=== PATIENT | male | born 1960 | race Caucasian/White ===

== ENCOUNTER 2016-12-04 02:22 | Emergency (ER) | payer MEDICAID ==
[~2016-12-04] VITALS: Ht 170.2 cm; Wt 82.0 kg
[2016-12-04 02:25] VITALS: Ht 170.2 cm; Wt 82.0 kg
[2016-12-04] MEDS ORDERED: AMOX1TAB10 PO (02:56)
--- NOTE | 2016-12-04 04:17 | ERA ---
ER Documentation Chief Complaint Date/Time DATE: 12/04/16 TIME: 04:12 Chief Complaint toothache, swollen gums, right jaw swelling HPI 56-year-old male presenting with a chief complaint of right jaw swelling and pain 3 days. Describes mild trismus. Patient has never had symptoms like this before. Patient denies IV drug use or other social factors. Denies fever , chills, nausea, vomiting, diarrhea, constipation, shortness of breath, chest pain, headache, meningismus. Patient has no other complaints and describes no other associated manifestations. Nursing notes have been reviewed. ROS All systems reviewed and are negative except as per history of present illness. Medications Home Meds Active Scripts Amoxicillin/Potassium Clav (Amox-Clav 875-125 mg Tablet) 875-125 mg Tab, 1 TAB PO BID for 7 Days, #14 TAB Prov:TIN DVAIS PA-C 12/04/16 Allergies Allergies: Coded Allergies: No Known Allergy (Unverified , 12/04/16) PMhx/Soc Medical and Surgical Hx: pt denies Medical Hx Hx Alcohol Use: No Hx Substance Use: No Hx Tobacco Use: Yes Smoking Status: Current every day smoker Physical Exam Vitals Vital Signs Date Time Temp Pulse Resp B/P Pulse Ox O2 Delivery O2 Flow Rate FiO2 12/04/16 02:25 97.8 88 20 156/78 98 Physical Exam Const: Homeless appearing 56-year-old male in no acute distress Head: Atraumatic Eyes: Normal Conjunctiva ENT: Mild trismus. No uvula deviation. Mild to moderate swelling of the right mandible. Mild tenderness to palpation. No temporal or mastoid tenderness. Normal External Ears, Nose. Oral mucosa appears pink and moist without obvious abnormalities. Neck: Full range of motion..~ No meningismus. Good air movement with auscultation. No bruits. Resp: Clear to auscultation bilaterally Cardio: Regular rate and rhythm, no murmurs Abd: Soft, non tender, non distended. Normal bowel sounds Skin: No petechiae or rashes Back: No midline or flank tenderness Ext: No cyanosis, or edema Neur: Awake and alert Psych: Normal Mood and Affect Result Diagram: 12/04/16 0451 12/04/16 0451 Results 24 hrs Laboratory Tests Test 12/04/16 04:51 White Blood Count 8.810^3/ul Red Blood Count 4.4710^6/ul Hemoglobin 13.7g/dl Hematocrit 40.9% Mean Corpuscular Volume 91.5fl Mean Corpuscular Hemoglobin 30.6pg Mean Corpuscular Hemoglobin Concent 33.5g/dl Red Cell Distribution Width 12.3% Platelet Count 92130^3/UL Mean Platelet Volume 9.5fl Neutrophils % 67.4% Lymphocytes % 20.6% Monocytes % 10.1% Eosinophils % 1.1% Basophils % 0.5% Nucleated Red Blood Cells % 0.0/100WBC Neutrophils # 5.910^3/ul Lymphocytes # 1.810^3/ul Monocytes # 0.910^3/ul Eosinophils # 0.110^3/ul Basophils # 0.010^3/ul Nucleated Red Blood Cells # 0.010^3/ul Urine Color YELLOW Urine Clarity CLEAR Urine pH 5.0 Urine Specific Sullivan 1.027 Urine Ketones NEGATIVEmg/dL Urine Nitrite NEGATIVEmg/dL Urine Bilirubin NEGATIVEmg/dL Urine Urobilinogen 1+mg/dL Urine Leukocyte Esterase NEGATIVELeu/ul Urine Microscopic RBC 25/HPF Urine Microscopic WBC 1/HPF Urine Mucus MANY/HPF Urine Hemoglobin 2+mg/dL Urine Glucose NEGATIVEmg/dL Urine Total Protein 1+mg/dl Sodium Level 141mmol/L Potassium Level 4.0mmol/L Chloride Level 97mmol/L Carbon Dioxide Level 32mmol/L Anion Gap 16 Blood Urea Nitrogen 20mg/dl Creatinine 0.91mg/dl Glucose Level 136mg/dl Calcium Level 8.9mg/dl Total Bilirubin 0.2mg/dl Direct Bilirubin 0.00mg/dl Indirect Bilirubin 0.2mg/dl Aspartate Amino Transf (AST/SGOT) 22IU/L Alanine Aminotransferase (ALT/SGPT) 35IU/L Alkaline Phosphatase 73IU/L Total Protein 7.2g/dl Albumin 3.8g/dl Globulin 3.40g/dl Albumin/Globulin Ratio 1.11 Current Medications Medications (Trade) Dose Ordered Sig/Libia Route PRN Reason Start Time Stop Time Status Last Admin Dose Admin Ampicillin Sodium/ Sulbactam Sodium (Unasyn 3gm/NS (Pmx)) 100 ml @ 100 mls/hr ONCE ONCE IVPB 12/04/16 06:00 12/04/16 06:59 Procedures/MDM 56-year-old male presenting with a chief complaint of right jaw swelling and pain 3 days as described in history and physical examination. Denies symptoms of systemic involvement. Refused pain medications in the ED. labs were obtained. CBC: Unremarkable CMP: Unremarkable Urinalysis: Hematuria. Mucus. PT/PTT: Unremarkable CT was ordered, read by the radiologist, and given the following impression: 1. Nasal bone deformity with bilateral fractures. 2. Periapical lucency right lower second molar tooth most suggestive of a periapical abscess with adjacent cortical thinning and questionable fracture along the lingual surface with surrounding submandibular soft tissue swelling consistent with soft tissue infection. 3. Diffuse increase right submandibular lymph nodes. 4. Mild mucosal thickening right frontal sinus, bilateral ethmoid air cells and inferior maxillary sinuses. 5. Rightward nasal septal deviation. Presented the case to my attending Dr. Miles who has suggested 3 g Unasyn IV before departure. Patient will be discharged with Augmentin 10 days. I have spoke with the patient regarding their condition and future management including the necessity for follow-up with Lenny brennan in the next 1-3 days and immediate return if symptoms change or worsen. They have verbally responded that they understand their status and treatment plan. The patients vitals are stable, and their current condition is appropriate for discharge. The patient will be given discharge instructions with return precautions. Departure Diagnosis: Primary Impression: Tooth abscess Condition: Stable Patient Instructions: Dental Abscess Referrals: [facility] ([facility] walk in clinic) Additional Instructions: Follow up with [facility] within the next 1-3 days. Return the the emergency department immediately if symptoms worsen or change. If you have any questions regarding medications, ask your pharmacist or us before you leave. If any adverse reactions occur while taking your medications, discontinue the treatment and return to the emergency department immediately. Take your medications as directed, and complete the entire course of treatment. TIN DAVIS PA-C Dec 04, 2016 04:17
[2016-12-04 05:06] LABS: BASOPHILS % 0.5 % (0.0-2.0); EOSINOPHILS # 0.1 10^3/ul (0.0-0.5); EOSINOPHILS % 1.1 % (0.0-7.0); HEMATOCRIT 40.9 % (42.0-52.0); HEMOGLOBIN 13.7 g/dl (14.0-18.0); LYMPHOCYTES # 1.8 10^3/ul (0.8-2.9); LYMPHOCYTES % 20.6 % (15.0-51.0); MEAN CORPUSCULAR HEMOGLOBIN 30.6 pg (29.0-33.0); MEAN CORPUSCULAR HGB CONC 33.5 g/dl (32.0-37.0); MEAN CORPUSCULAR VOLUME 91.5 fl (82.0-101.0); MEAN PLATELET VOLUME 9.5 fl (7.4-10.4); MONOCYTE # 0.9 10^3/ul (0.3-0.9); MONOCYTES % 10.1 % (0.0-11.0); NEUTROPHIL # 5.9 10^3/ul (1.6-7.5); NEUTROPHILS % 67.4 % (39.0-77.0); PLATELET COUNT 197 10^3/UL (140-415); RED BLOOD COUNT 4.47 10^6/ul (4.70-6.10); RED CELL DISTRIBUTION WIDTH 12.3 % (11.5-14.5); WHITE BLOOD COUNT 8.8 10^3/ul (4.8-10.8)
[2016-12-04 05:18] LABS: ADD UMIC YES; UR ASCORBIC ACID 40 mg/dL (NEGATIVE); UR BILIRUBIN (Dip) NEGATIVE (NEGATIVE); UR BLOOD (Dip) 2+ mg/dL (NEGATIVE); UR CLARITY CLEAR (CLEAR); UR COLOR YELLOW (YELLOW); UR GLUCOSE (Dip) NEGATIVE (NEGATIVE); UR KETONES (Dip) NEGATIVE (NEGATIVE); UR LEUKOCYTE ESTERASE (Dip) NEGATIVE Leu/ul (NEGATIVE); UR MUCUS MANY /HPF (NONE SEEN); UR NITRITE (Dip) NEGATIVE (NEGATIVE); UR RBC 25 /HPF (0-5); UR SPECIFIC GRAVITY (Dip) 1.027 (1.003-1.030); UR TOTAL PROTEIN (Dip) 1+ mg/dl (NEGATIVE); UR UROBILINOGEN (Dip) 1+ mg/dL (NEGATIVE)
--- NOTE | 2016-12-04 05:18 | RADRPT ---
PROCEDURE: CT FACIAL BONES WITHOUT CONTRAST CLINICAL INDICATION: 56-year-old male with right jaw pain. TECHNIQUE: The study was performed utilizing a GE GLOpeed VCT 64-slice CT scanner. Direct axia l sections were obtained through the facial bones without the use of intravenous contrast material. Sagittal and coronal re-formations were obtained. One or more of the following dose reduction techn iques were utilized: automated exposure control, adjustment of the mA and/or kV according to patient 's size or use of iterative reconstruction technique. The images were reviewed on a PACS workstatio n. CTD/vol = 29.5 mGy; Total Exam DLP = 572.5 mGy-cm. COMPARISON: None. FINDINGS: There is evidence for bilateral nasal bone fractures and deformities. There is right mandibular sof t tissue swelling and infiltration. There are is a periapical lucency surrounding the right lower s econd molar which extends to the mandibular canal region with adjacent thinning of the bone and a qu estionable cortical defect which may represent a fracture along the lingual surface on axial image 2 -66. This is in the region of the diffuse surrounding soft tissue swelling. There is no definite f ocal fluid collection however this is difficult to evaluate without the use of intravenous contrast material. There are diffuse increased shotty lymph nodes within the right submandibular region. Th e globes are intact. There are no intra- or extra-conal masses. There is mild mucosal thickening i dentified within the right frontal sinus, bilateral ethmoid air cells and inferior maxillary sinuses . The ostiomeatal units are patent bilaterally. There is rightward nasal septal deviation. IMPRESSION: 1. Nasal bone deformity with bilateral fractures. 2. Periapical lucency right lower second molar tooth most suggestive of a periapical abscess with a djacent cortical thinning and questionable fracture along the lingual surface with surrounding subma ndibular soft tissue swelling consistent with soft tissue infection. 3. Diffuse increase right submandibular lymph nodes. 4. Mild mucosal thickening right frontal sinus, bilateral ethmoid air cells and inferior maxillary sinuses. 5. Rightward nasal septal deviation. .Zhang Barragan MD, Date Time Electronically viewed and signed by .Zhang Barragan MD, on 12/04/2016 05:18 .Zamzam
[2016-12-04 05:22] LABS: ALBUMIN 3.8 g/dl (3.3-4.9); ALBUMIN/GLOBULIN RATIO 1.11; BILIRUBIN,INDIRECT 0.2 mg/dl (0-1.1); BILIRUBIN,TOTAL 0.2 mg/dl (0.2-1.3); CALCIUM 8.9 mg/dl (8.4-10.2); CREATININE 0.91 mg/dl (0.61-1.24); TOTAL PROTEIN 7.2 g/dl (6.1-8.1)
[2016-12-04] MEDS ORDERED: AMPICILLIN/SULB 3 GM/NS (PMX) 100 ML IVPB ONE (06:00)
[2016-12-04] MEDS ORDERED: HYDR-906 PO (06:33)
[2016-12-04] MEDS ORDERED: HYDROCODONE/APAP (5/325) TAB PO ONE (07:00)
== END 2016-12-04 07:21 | disposition home or self-care (01) ==
LOC: FTE 02:22
DX: K04.7 Periapical abscess without sinus (principal); F17.210 Nicotine dependence, cigarettes, uncomplicated
CPT/HCPCS: 70486; 80053; 81001; 85025; 96374; J0295; Z7502; Z7610

== ENCOUNTER 2018-07-26 05:06 | Emergency (ER) | payer MEDICAID ==
[~2018-07-26] VITALS: Wt 89.2 kg
[~2018-07-26 05:06] MED LIST: AMOX1TAB10 PO; HYDR-4011 PO
[2018-07-26 05:08] VITALS: RESP 18
--- NOTE | 2018-07-26 06:13 | ERD ---
ER Documentation Chief Complaint Chief Complaint LAC TO R WRIST FROM BROKEN GLASS YESTERDAY AFTERNOON HPI 58-year-old [id number] male presents to the ED with complaints of a laceration to his right wrist sustained yesterday at 3 PM. Patient states he was carrying of a large frame of broken glass on 1 of the pieces accidentally sliced through his wrist. He reports sharp, 9 out of 10 pain. He was able to stop the bleeding with direct pressure but is worried that he may have lacerated and artery and came here for further evaluation. Does not know if his tetanus is up-to-date. He otherwise has full range of motion of his fingers and of his wrist. Denies any numbness, tingling. No other injuries reported. ROS All systems reviewed and are negative except as per history of present illness. Medications Home Meds Active Scripts Sulfamethoxazole/Trimethoprim* (Bactrim Ds* Tablet) 1 Each Tablet, 1 TAB PO BID, #14 TAB Prov:TOM CRANE PA-C 07/26/18 Cephalexin* (Keflex*) 500 Mg Capsule, 500 MG PO QID for 7 Days, CAP Prov:TOM CRANE PA-C 07/26/18 Hydrocodone/Acetaminophen ([place] 5-325 Tablet) 1 Each Tablet, 1 TAB PO Q6H PRN for PAIN, #7 TAB Prov:TIN DAVIS PA-C 12/04/16 Amoxicillin/Potassium Clav (Amox-Clav 875-125 mg Tablet) 875-125 mg Tab, 1 TAB PO BID for 7 Days, #14 TAB Prov:TIN DAVIS PA-C 12/04/16 Allergies Allergies: Coded Allergies: No Known Allergy (Unverified , 12/04/16) PMhx/Soc Medical and Surgical Hx: pt denies Medical Hx Hx Alcohol Use: No Hx Substance Use: No Hx Tobacco Use: Yes Smoking Status: Current every day smoker Physical Exam Vitals Vital Signs Date Temp Pulse Resp B/P (MAP) Pulse Ox O2 O2 Flow FiO2 Time Delivery Rate 07/26/18 74 170/91 08:05 (117) 07/26/18 97.8 87 18 140/89 97 05:08 (106) Physical Exam Const: No acute distress Head: Atraumatic Eyes: Normal Conjunctiva ENT: Normal External Ears, Nose and Mouth. Neck: Full range of motion. No meningismus. Upper Extremity - right Skin: + 3.5 cm horizontal laceration to right wrist Compartments: Soft Motor: Full active range of motion shoulder/elbow/wrist/hand Sensation: Intact shoulder/pinky/middle finger/thumb web space Bones: Nontender humerus/elbow/forearm/wrist/hand Snuffbox: Nontender Joints: No effusion Pulses/Perfusion: 2+ radial, Capillary refill < 2 seconds Ext: No cyanosis, or edema Neur: Awake and alert Psych: Normal Mood and Affect Results 24 hrs Current Medications Medications Dose Sig/Libia Start Time Status Last (Trade) Ordered Route PRN Stop Time Admin Dose Reason Admin Diphtheria/ 0.5 ml ONCE ONCE 07/26/18 DC 07/26/18 Tetanus/Acell IM* 06:30 07/26/18 06:29 Pertussis 06:31 (Adacel) Lidocaine/ 20 ml ONCE STAT 07/26/18 DC Epinephrine INJ 06:48 07/26/18 (Xylocaine 06:50 2%/ Epi Mpf(Sdv)) 1 tab ONCE ONCE 07/26/18 DC 07/26/18 Acetaminophen PO 07:00 07/26/18 07:11 / 07:01 Hydrocodone Bitart ([place] (5/325)) Procedures/MDM ED Procedures: Laceration Repair by me: Anesthesia: 1% lidocaine with epi locally Location: Right wrist Tendon/Joint/Nerves: No injury Foreign body: None detected after copious irrigation and exploration Technique: 5 6-0 Simple Interrupted Sutures Complexity: No subcutaneous sutures/mucosal repair/edge excision Post Closure Length: 3.5 cm 48 hour wound check. Scar minimization instructions given. ED Course: Patient given Jacumba for pain relief with him improvement. Laceration repaired as above. MDM: Pt is a 58-year-old male presents to the ED with a laceration to his right wrist sustained from a broken piece of glass. Wound was extensively irrigated. No foreign body seen therefore no need for xrays. Tetanus was updated. Laceration was repaired as above. Patient has no neurological or vascular injuries. No evidence of compartment syndrome, open joint, tendon laceration or foreign body. He was told to return in 2 days for wound recheck, sutures can removed in 7-10 days. Given rx Bactrim and keflex for prophylactic coverage. Strict return precautions discussed. Prescriptions: Bactrim, Keflex Blood Pressure Assessment: Patient's blood pressure was elevated (>120/80) but appears stable without evidence of hypertension emergency or urgency. The patient was counseled about the risks of hypertension and urged to pursue outpatient monitoring and therapy within a week with their primary care physician. Departure Diagnosis: Primary Impression: Laceration Condition: Stable Patient Instructions: Laceration, Hand Referrals: [facility] Additional Instructions: Call your primary care doctor TOMORROW for an appointment during the next 2-4 days and bring all the information and medications prescribed. If the symptoms get worse and your provider is unavailable, return to the Emergency Department immediately. TOM CRANE PA-C Jul 26, 2018 06:13
[2018-07-26] MEDS ORDERED: DIPHTH/TET/ACEL PERTUSS (ADULT) 0.5 ML VIAL IM* ONE (06:30)
[2018-07-26] MEDS ORDERED: LIDOCAINE 2%/EPI MPF (SDV) 20 ML VIAL INJ STA (06:48)
[2018-07-26] MEDS ORDERED: HYDROCODONE/APAP (5/325) TAB PO ONE (07:00)
[2018-07-26] MEDS ORDERED: CEPH-443 PO (07:50)
[2018-07-26] MEDS ORDERED: SULF1TAB31 PO (07:50)
[2018-07-26 08:05] VITALS: BP 170/91; PULSE 74
== END 2018-07-26 08:06 | disposition home or self-care (01) ==
LOC: FTE 05:06
DX: S61.511A Laceration without foreign body of right wrist, initial encounter (principal); F17.210 Nicotine dependence, cigarettes, uncomplicated; W25.XXXA Contact with sharp glass, initial encounter; Y92.9 Unspecified place or not applicable; Z23 Encounter for immunization
CPT/HCPCS: 12002; 90471; 90715; Z7502; Z7610

== ENCOUNTER 2018-07-29 09:13 | Emergency (ER) | payer MEDICAID ==
[~2018-07-29] VITALS: Wt 84.3 kg
[~2018-07-29 09:13] MED LIST changes: +CEPH-443 PO; +SULF1TAB31 PO
[2018-07-29 09:15] VITALS: BP 159/78; PULSE 84; RESP 18
--- NOTE | 2018-07-29 09:50 | ERD ---
ER Documentation Chief Complaint Chief Complaint RIGHT HAND WOUND CHECK HPI 55-year-old male, right-handed, presents the emergency department, for wound check of a laceration repaired 3 days ago. The patient refers feeling better, no pain, no active bleeding, no signs of infection. Good compliance with antibiotics, no side effects. ROS All systems reviewed and are negative except as per history of present illness. Medications Home Meds Active Scripts Sulfamethoxazole/Trimethoprim* (Bactrim Ds* Tablet) 1 Each Tablet, 1 TAB PO BID, #14 TAB Prov:TOM CRANE PA-C 07/26/18 Cephalexin* (Keflex*) 500 Mg Capsule, 500 MG PO QID for 7 Days, CAP Prov:TOM CRANE PA-C 07/26/18 Hydrocodone/Acetaminophen (Leslie 5-325 Tablet) 1 Each Tablet, 1 TAB PO Q6H PRN for PAIN, #7 TAB Prov:TIN DAVIS PA-C 12/04/16 Amoxicillin/Potassium Clav (Amox-Clav 875-125 mg Tablet) 875-125 mg Tab, 1 TAB PO BID for 7 Days, #14 TAB Prov:TIN DAVIS PA-C 12/04/16 Allergies Allergies: Coded Allergies: No Known Allergy (Unverified , 12/04/16) PMhx/Soc Medical and Surgical Hx: pt denies Medical Hx Anesthesia Reaction: No Hx Alcohol Use: Yes (rarely) Hx Substance Use: No Hx Tobacco Use: Yes Smoking Status: Current every day smoker Physical Exam Vitals Vital Signs Date Temp Pulse Resp B/P (MAP) Pulse Ox O2 O2 Flow FiO2 Time Delivery Rate 07/29/18 98.6 84 18 159/78 99 09:15 (105) Physical Exam Const: No acute distress Head: Atraumatic Eyes: Normal Conjunctiva ENT: Normal External Ears, Nose and Mouth. Neck: Full range of motion. No meningismus. Resp: Clear to auscultation bilaterally Cardio: Regular rate and rhythm, no murmurs Abd: Soft, non tender, non distended. Normal bowel sounds Skin: Right wrist with 3 cm linear laceration with stitches in place, clean, dry and intact. No petechiae or rashes Back: No midline or flank tenderness Ext: No cyanosis, or edema Neur: Awake and alert Psych: Normal Mood and Affect Procedures/MDM Status post laceration repair 2 days ago. Adequate pain control, no fever, no chills, good compliance with medications no side effects. The patient was evaluated for infection and neurovascular compromise. The wound was clean and irrigated with normal saline and dressing applied. Patient is stable, with adequate healing process, okay to discharge home, medication adherence reinforced. some side effects of prescribed medications (headache, rash, nausea, vomiting, diarrhea, drowsiness, habituation, bleeding, hypertension, interactions with other medications) were reviewed. The patient was instructed to follow up with the primary care provider in the next 48h. If symptoms persist, worsen or new symptoms develop, then patient should return to the ED immediately. Instructions explained and given directly by me to the patient with acknowledgment and demonstrated understanding. Disclaimer: Inadvertent spelling and grammatical errors are likely due to EHR/dictation software use and do not reflect on the overall quality of patient care. Also, please note that the electronic time recorded on this note does not necessarily reflect the actual time of the patient encounter. Departure Diagnosis: Primary Impression: Encounter for wound re-check Condition: Stable Additional Instructions: Thank you very much for allowing us to participate in your care. Your health and safety is our top priority at [facility]. Call your primary care doctor TOMORROW for an appointment during the next 2-4 days and bring all the information and medications prescribed. Have prescriptions filled and follow precisely the directions on the label. If the symptoms get worse and your provider is unavailable, return to the Emergency Department immediately. GATITO NGUYỄN MD Jul 29, 2018 09:50
== END 2018-07-29 10:08 | disposition home or self-care (01) ==
LOC: FTE 09:13
DX: Z48.01 Encounter for change or removal of surgical wound dressing (principal); F17.210 Nicotine dependence, cigarettes, uncomplicated
CPT/HCPCS: 99281

== ENCOUNTER 2018-08-11 17:46 | Emergency (ER) | payer MEDICAID ==
[~2018-08-11] VITALS: Wt 81.0 kg
--- NOTE | 2018-08-11 19:34 | ERD ---
ER Documentation Chief Complaint Chief Complaint suture removal to left forearm HPI Patient is a 58-year-old male with no medical problems who presents for suture removal. He has had sutures in his right wrist for the past 14 days. He cut the wrist on a piece of glass while moving a table. He has no other complaints. He has had no fevers. He has no trouble moving his hand. He does not currently have a primary doctor. ROS All systems reviewed and are negative except as per history of present illness. Medications Home Meds Active Scripts Sulfamethoxazole/Trimethoprim* (Bactrim Ds* Tablet) 1 Each Tablet, 1 TAB PO BID, #14 TAB Prov:TOM CRANE PA-C 07/26/18 Cephalexin* (Keflex*) 500 Mg Capsule, 500 MG PO QID for 7 Days, CAP Prov:TOM CRANE PA-C 07/26/18 Hydrocodone/Acetaminophen ([place] 5-325 Tablet) 1 Each Tablet, 1 TAB PO Q6H PRN for PAIN, #7 TAB Prov:TIN DAVIS PA-C 12/04/16 Amoxicillin/Potassium Clav (Amox-Clav 875-125 mg Tablet) 875-125 mg Tab, 1 TAB PO BID for 7 Days, #14 TAB Prov:TIN DAVIS PA-C 12/04/16 Allergies Allergies: Coded Allergies: No Known Allergy (Unverified , 12/04/16) PMhx/Soc Anesthesia Reaction: No Hx Alcohol Use: Yes (rarely) Hx Substance Use: No Hx Tobacco Use: Yes Smoking Status: Current every day smoker FmHx Family History: No diabetes Physical Exam Vitals Vital Signs Date Temp Pulse Resp B/P (MAP) Pulse Ox O2 O2 Flow FiO2 Time Delivery Rate 08/11/18 98.1 78 18 99 17:53 Physical Exam Const: No acute distress Head: Atraumatic Eyes: Normal Conjunctiva ENT: Normal External Ears, Nose and Mouth. Neck: Full range of motion. No meningismus. Resp: Clear to auscultation bilaterally Cardio: Regular rate and rhythm, no murmurs Abd: Soft, non tender, non distended. Normal bowel sounds Skin: Laceration to the right wrist is clean, dry, and intact Back: No midline or flank tenderness Ext: No cyanosis, or edema Neur: Awake and alert Psych: Normal Mood and Affect Procedures/MDM Suture Removal by me: Sutures removed with tweezers and scissors without incident. Wound shows no evidence of infection, foreign body, neurologic injury, vascular injury, open joint or tendon laceration. Patient to follow up PRN. Departure Diagnosis: Primary Impression: Encounter for removal of sutures Condition: Fair Patient Instructions: Suture Removal, No Complication Referrals: Your doctor Additional Instructions: Call your primary care doctor TOMORROW for an appointment during the next 1 WEEK.Tell the secretary to board of commissioners that you were referred from this facility.See the doctor sooner or return here if your condition worsens before your appointment time. BORA CARRERA MD Aug 11, 2018 19:34
[2018-08-11 19:53] VITALS: BP 128/72; PULSE 68; RESP 16
== END 2018-08-11 19:54 | disposition home or self-care (01) ==
LOC: FTE 17:46
DX: Z48.02 Encounter for removal of sutures (principal); F17.210 Nicotine dependence, cigarettes, uncomplicated
CPT/HCPCS: 99281

== ENCOUNTER 2018-09-29 23:10 | Emergency (ER) | payer MEDICAID, OTHER ==
[~2018-09-29] VITALS: Ht 180.3 cm; Wt 87.0 kg
[2018-09-29 23:13] VITALS: Ht 180.3 cm; Wt 87.0 kg
[2018-09-30] MEDS ORDERED: HYDR12.53 PO (05:10)
[2018-09-30] MEDS ORDERED: CEPH-443 PO (05:10)
[2018-09-30 05:19] VITALS: BP 173/94; PULSE 73; RESP 16
--- NOTE | 2018-09-30 05:26 | ERD ---
ER Documentation Chief Complaint Chief Complaint pt c/o being hypertensive,headache x3 days,bug bites. HPI This is a 58-year-old male with a history of hypertension, who presents for evaluation of his hypertension, as well as bites to his leg. There is localized to his right leg, as well as one on his forearm as well. He endorses a mild gradual onset headache, he has not had confusion, no vomiting, no neck stiffness. He states he was previously on Norvasc, however he did not like the side effects and this was many years ago. ROS All systems reviewed and are negative except as per history of present illness. Medications Home Meds Active Scripts Hydrochlorothiazide (Hydrochlorothiazide) 12.5 Mg Capsule, 12.5 MG PO DAILY, #30 CAP Prov:MOI NAIK MD 09/30/18 Cephalexin* (Keflex*) 500 Mg Capsule, 500 MG PO QID for 7 Days, CAP Prov:MOI NAIK MD 09/30/18 Discontinued Scripts Sulfamethoxazole/Trimethoprim* (Bactrim Ds* Tablet) 1 Each Tablet, 1 TAB PO BID, #14 TAB Prov:TABATHAIGRTOM VASQUEZC 07/26/18 Cephalexin* (Keflex*) 500 Mg Capsule, 500 MG PO QID for 7 Days, CAP Prov:TABATHAIGRTOM VASQUEZC 07/26/18 Hydrocodone/Acetaminophen ([place] 5-325 Tablet) 1 Each Tablet, 1 TAB PO Q6H PRN for PAIN, #7 TAB Prov:TIN DAVIS PA-C 12/04/16 Amoxicillin/Potassium Clav (Amox-Clav 875-125 mg Tablet) 875-125 mg Tab, 1 TAB PO BID for 7 Days, #14 TAB Prov:TIN DAVIS PA-C 12/04/16 Allergies Allergies: Coded Allergies: No Known Allergy (Unverified , 12/04/16) PMhx/Soc Anesthesia Reaction: No Hx Cardiac Disorders: Yes (htn) Hx Alcohol Use: Yes (rarely) Hx Substance Use: No Hx Tobacco Use: Yes Smoking Status: Current every day smoker Physical Exam Vitals Vital Signs Date Temp Pulse Resp B/P (MAP) Pulse Ox O2 O2 Flow FiO2 Time Delivery Rate 09/30/18 73 16 173/94 100 Room Air 05:19 (120) 09/29/18 97.6 93 16 210/101 99 23:13 (137) Physical Exam Const: Well-developed, well-nourished, nontoxic Head: Atraumatic Eyes: Normal Conjunctiva ENT: Normal External Ears, Nose and Mouth. Neck: Full range of motion. No meningismus. Resp: Clear to auscultation bilaterally Cardio: Regular rate and rhythm, no murmurs Abd: Soft, non tender, non distended. Normal bowel sounds Skin: No petechiae or rashes Back: No midline or flank tenderness Ext: No cyanosis, or edema. Over the right lower extremity, there is an area erythema, with small puncture wounds, most consistent with likely bug bites, there are excoriations noted, over the right lower extremity as well as the rig ht forearm. Cap refill less than 2 seconds, sensation intact light touch, there is no calf tenderness Neur: Awake and alert Psych: Normal Mood and Affect Result Diagram: 09/30/18 0347 09/30/18 0347 Results 24 hrs Laboratory Tests Test 09/30/18 03:47 White Blood Count 9.4 10^3/ul Red Blood Count 4.49 10^6/ul Hemoglobin 13.1 g/dl Hematocrit 40.6 % Mean Corpuscular Volume 90.4 fl Mean Corpuscular Hemoglobin 29.2 pg Mean Corpuscular Hemoglobin Concent 32.3 g/dl Red Cell Distribution Width 13.6 % Platelet Count 245 10^3/UL Mean Platelet Volume 9.3 fl Immature Granulocytes % 0.300 % Neutrophils % 55.4 % Lymphocytes % 30.2 % Monocytes % 9.9 % Eosinophils % 3.5 % Basophils % 0.7 % Nucleated Red Blood Cells % 0.0 /100WBC Immature Granulocytes # 0.030 10^3/ul Neutrophils # 5.2 10^3/ul Lymphocytes # 2.9 10^3/ul Monocytes # 0.9 10^3/ul Eosinophils # 0.3 10^3/ul Basophils # 0.1 10^3/ul Nucleated Red Blood Cells # 0.0 10^3/ul Sodium Level 141 mmol/L Potassium Level 3.9 mmol/L Chloride Level 104 mmol/L Carbon Dioxide Level 32 mmol/L Anion Gap 5 Blood Urea Nitrogen 24 mg/dl Creatinine 1.08 mg/dl Est Glomerular Filtrat Rate mL/min > 60 mL/min Glucose Level 118 mg/dl Calcium Level 8.8 mg/dl Procedures/MDM 58-year-old male presents for evaluation of hypertension as well as bites. #Hypertension. Patient for some mild gradual onset headache, without any neurologic deficits, he has no meningeal signs, and his history and physical is not consistent with an emergent cause of headache such as subarachnoid hemorrhage. Essentially the patient has asymptomatic hypertension, his renal function was within normal limits, given that he did not tolerate Norvasc well, I started him a short course of hydrochlorothiazide, however I recommend a follow-up with his PMD, for lab recheck. #Bug bites. No evidence of systemic infection, I discussed from the patient, and recommend topical Benadryl, shared decision making made to provide prescription for Keflex prophylactically At discharge patient in no distress. EKG: Rate/Rhythm: Normal Sinus Rhythm QRS, ST, T-waves: No changes consistent w/ acute ischemia Impression: No evidence of ischemia or arrhythmia Departure Diagnosis: Primary Impression: Hypertension Hypertension type: unspecified Qualified Codes: I10 - Essential (primary) hypertension Additional Impression: Bug bite Encounter type: initial encounter Qualified Codes: W57.XXXA - Bitten or stung by nonvenomous insect and other nonvenomous arthropods, initial encounter Condition: Stable Patient Instructions: High Blood Pressure (Hypertension) Additional Instructions: Call your primary care doctor TOMORROW for an appointment during the next 2-3 days.See the doctor sooner or return here if your condition worsens before your appointment time. MOI NAIK MD Sep 30, 2018 05:26
== END 2018-09-30 05:23 | disposition home or self-care (01) ==
LOC: E/R 23:10
DX: S80.861A Insect bite (nonvenomous), right lower leg, initial encounter (principal); I10 Essential (primary) hypertension; F17.210 Nicotine dependence, cigarettes, uncomplicated; W57.XXXA Bitten or stung by nonvenomous insect and other nonvenomous arthropods, initial encounter; Y92.9 Unspecified place or not applicable
CPT/HCPCS: 80048; 85025; Z7502; 93005; 99283

== ENCOUNTER 2019-01-20 21:12 | Emergency (ER) | payer OTHER ==
[~2019-01-20] VITALS: Ht 177.8 cm; Wt 97.9 kg
[~2019-01-20 21:12] MED LIST changes: -AMOX1TAB10 PO; -HYDR-4011 PO; +HYDR12.53 PO
[2019-01-20 21:16] VITALS: BP 214/107; PULSE 92; RESP 20; Ht 177.8 cm; Wt 97.9 kg
[2019-01-20] MEDS ORDERED: TRIMETHOPRIM/SULFAMETHOX (DS) TAB PO ONE (22:30)
[2019-01-20] MEDS ORDERED: CEPHALEXIN 500 MG CAP PO ONE (22:30)
== END 2019-01-20 22:11 | disposition home or self-care (01) ==
LOC: E/R 21:12
DX: L03.113 Cellulitis of right upper limb (principal); F17.210 Nicotine dependence, cigarettes, uncomplicated; I10 Essential (primary) hypertension
CPT/HCPCS: 99283